=== PATIENT | female | born 1975 | race Two or more races ===

== ENCOUNTER 2024-06-25 14:16 | Emergency (ER) | payer SELFPAY ==
[~2024-06-25] VITALS: Ht 172.7 cm; Wt 136.0 kg
[2024-06-25 14:45] VITALS: PULSE 98; RESP 16; O2SAT 95
[2024-06-25] MEDS: ONDANSETRON HCL 4 MG/2 ML VIAL IV ONE (15:01)
[2024-06-25] MEDS: SODIUM CHLORIDE 0.9% 1,000 ML IV ONE (15:03)
[2024-06-25 15:09] LABS: COVID19 ANTIGEN SOFIA FIA NEGATIVE (NEGATIVE); Rapid Influenza B Negative (Negative)
[2024-06-25 15:12] LABS: Rapid Influenza A Positive (Negative)
--- NOTE | 2024-06-25 15:21 | DVH ---
CHEST RADIOGRAPH Indication: COUGH Technique: Single frontal view of the chest was obtained Comparison: None FINDINGS: Lines and Tubes: None Lungs: No focal consolidation. Mild interstitial prominence. Pleura: No effusion. No pneumothorax. Cardiomediastinal contours: Unremarkable Bones: No acute osseous abnormality. IMPRESSION: Mild pulmonary vascular congestion.
--- NOTE | 2024-06-25 15:23 | ED.PDOC ---
SOB-HPI HPI Comments 49 year old female VIKTORIA presents to the ED with chief complaint of flu-like illness. Patient reports that she has been experiencing SOB with associated productive cough, fever, body aches, and headache for the past 2 days since returning from a [place] trip. Patient relays that she has asthma and thought it was just an episode of exacerbation, but it became worse over time. Patient denies any chest pain, N/V/D, abdominal pain, chills, dizziness, or hemoptysis. Chief Complaint: Flu like Time Seen by MD: 15:14 Reviewed notes: Nurses Notes, Hydraulic Assembler Notes, Medications, Allergies Information Source: Patient Mode of Arrival: EMS Severity: Moderate Timing: Days Duration: Since onset Context: At Rest PE Risk Factors: None History of: None Prehospital treatment: None Associated Signs and Symptoms: Fever, Cough If cough with SOB: Productive Past Medical History PAST MEDICAL HISTORY: Asthma, DM, HTN Surgical History: , Hysterectomy Surgical History (Other): Bilateral carpal tunnel surgery GAME MASTER History: No Pertinent GAME MASTER History Family History Family History: Reviewed,noncontributory to illness Social History Smoker: Non-Smoker Alcohol: Occasionally Drugs: Denies Drug Use Lives In: Home Constitutional: reports: fever, others (Body aches); denies: chills, diaphoresis, fatigue, malaise, sweats, weakness EENTM: denies: blurred vision, double vision, ear bleeding, ear discharge, ear drainage, ear pain, ear ringing, eye pain, eye redness, hearing loss, mouth pain, mouth swelling, nasal discharge, nose bleeding, nose congestion, nose pain, photophobia, tearing, throat pain, throat swelling, voice changes, others Respiratory: reports: cough, shortness of breath; denies: hemoptysis, orthopnea, SOB at rest, SOB with excertion, stridor, wheezing, others Cardiovascular: denies: chest pain, dizzy spells, diaphoresis, Dyspnea on exertion, edema, irregular heart beat, left arm pain, lightheadedness, pa lpitations, PND, syncope, others Gastrointestinal: denies: abdomen distended, abdominal pain, blood streaked bowels, constipated, diarrhea, dysphagia, difficulty swallowing, hematemesis, melena, nausea, poor appetite, poor fluid intake, rectal bleeding, rectal pain, vomiting, others Genitourinary: denies: abnormal vagina bleeding, burning, dyspareunia, dysuria, flank pain, frequency, hematuria, incontinence, pain, , vagina discharge, urgency, others Neurological: reports: headache; denies: dizziness, fainting, left sided numbness, left sided weakness, numbness, paresthesia, pre-existing deficit, right sided numbness, right sided weakness, seizure, speech problems, tingling, tremors, weakness, others Musculoskeletal: denies: back pain, gout, joint pain, joint swelling, muscle pain, muscle stiffness, neck pain, others Integumetry: denies: bruises, change in color, change in hair/nails, dryness, laceration, lesions, lumps, rash, wounds, others Allergic/Immunocompromised: denies: Difficulty Healing, Frequent Infections, Hives, Itching, others Hematologic/Lymphatic: denies: anemia, blood clots, easy bleeding, easy bruising, swollen glands, others Endocrine: denies: excessive hunger, excessive sweating, excessive thirst, excessive urination, flushing, intolerance to cold, intolerance to heat, unexplained weight gain, unexplained weight loss, others Psychiatric: denies: anxiety, bipolar disorder, depression, hopeless, panic disorder, schizophrenia, sleepless, suicidal, others All Other Systems: Reviewed and Negative Physical Exam General Appearance: Moderate Distress, Obese HEENT: Normal ENT Inspection, PERRL/EOMI, Pharynx Normal, TMs Normal Neck: Full Range of Motion, Non-Tender, Normal, Normal Inspection Respiratory: Chest Non-Tender, Lungs Clear, No Accessory Muscle Use, No Respiratory Distress, Normal Breath Sounds Cardiovascular: No Edema, No JVD, No Murmur, No Gallop, Normal Peripheral Pulses, Regular Rate/Rhythm Breast Exam: Deferred Gastrointestinal: No Organomegaly, Non Tender, No Pulsatile Mass, Normal Bowel Sounds, Soft Genitalia: Deferred Pelvic: Deferred Rectal: Deferred Extremities: No calf tenderness, Normal capillary refill, Normal inspection, Normal range of motion, Non-tender, No pedal edema Musculoskeletal : Apperance: Normal Neurologic: Alert, physician non invasive cardiologist II-XII nml as Tested, No Motor Deficits, Normal Affect, Normal Mood, No Sensory Deficits Cerebellar Function: Normal Reflexes: Normal Skin: Dry, Normal Color, Warm Peripheral Pulses: 1+ carotid (R), 1+ carotid (L) Lymphatic: No Adenopathy Was a procedure done? Was a procedure done?: No Differential Dx Differential Diagnosis: Bronchitis, CHF, Dysrhythmia, Pneumonia, Pharyngitis, URI, Other (SYNDROME) X-Ray, Labs, Meds, VS Vital Signs Date Time Temp Pulse Resp B/P (MAP) Pulse Ox O2 Delivery O2 Flow Rate FiO2 06/25/24 16:18 102.2 111 18 144/76 (98) 96 102.2 06/25/24 16:18 111 18 96 Room Air 06/25/24 14:58 100.0 108 22 135/87 (103) 98 100.0 06/25/24 14:45 98 16 95 Room Air* 0 21 Lab Test 06/25/24 14:40 Range/Units Influenza Type A Antigen Positive Negative Influenza Type B Antigen Negative Negative SARS-CoV-2 Antigen (Rapid) Negative NEGATIVE Current Medications Medications (Trade) Dose Ordered Sig/Fabio Route Start Time Stop Time Status Last Admin Ondansetron HCl (Zofran) 4 mg ONCE ONCE IV 06/25/24 15:00 06/25/24 15:01 DC 06/25/24 15:01 Sodium Chloride 1,000 ml @ 1,000 mls/hr Q1H ONCE IV 06/25/24 15:00 06/25/24 15:59 DC 06/25/24 15:03 Chest XR: FINDINGS: Lines and Tubes: None Lungs: No focal consolidation. Mild interstitial prominence. Pleura: No effusion. No pneumothorax. Cardiomediastinal contours: Unremarkable Bones: No acute osseous abnormality. IMPRESSION: Mild pulmonary vascular congestion. X-Ray, Labs, Meds, VS Comment COURSE IN THE EMERGENCY DEPARTMENT EVENTFUL PATIENT CAME IN COMPLAINING OF SHORTNESS OF BREATH FEVER CHILLS HEADACHE FOR THE PAST FEW DAYS SHE HAS A HISTORY OF ASTHMA DIABETES AND HYPERTENSION THE CHEST X-RAY SHOWS PULMONARY VASCULAR CONGESTION INFLUENZA A POSITIVE INFLUENZA B NEGATIVE COVID-19 NEGATIVE PATIENT WILL BE DISCHARGED HOME TO FOLLOW UP WITH HER PCP IF NOT BETTER SHE WILL COME TO THE ER FOR FURTHER CARE Time of 1ST Reevaluation: 16:14 Reevaluation 1ST: Unchanged Time of 2ND Reevaluation: 16:16 Reevaluation 2ND: Unchanged Consultation: PCP Patient Education/Counseling: Diagnosis, Treatment, Prognosis, Need For Follow Up Family Education/Counseling: Diagnosis, Treatment, Prognosis, Need For Follow Up, No Family Present Departure 1 Departure Time of Disposition: 16:18 Impression: Primary Impression: Influenza A H1N1 infection Additional Impressions: Febrile History of diabetes mellitus, type II History of asthma Disposition: 01 HOME / SELF CARE / HOMELESS Condition: Fair Additional Instructions: PUSH FLUIDS USE TYLENOL FOR FEVER AND ACHE AND FOLLOW UP WITH YOUR PCP e-Prescriptions [id number] W/ APAP (Robitussin Severe Mul... [id number] mg/10Ml) 1 Liq Liq 2 TSP PO TID for 10 Days, #300 LIQ Prov: RADHAMES MONGE MD 06/25/24 Oseltamivir Phosphate (Tamiflu) 75 Mg Cap 1 CAP PO BID for 5 Days, #10 CAP Prov: RADHAMES MONGE MD 06/25/24 Discharged With: Self Critical Care Note Critical Care Time?: No Stability Stability form required: No Heart Score Heart Score: Heart Score Response (Comments) Value History N/A 0 EKG N/A 0 Age 45-64 1 Risk Factors 1 or 2 risk factors 1 Troponin N/A 0 Total 2 I personally scribed for RADHAMES MONGE MD ([email or web address]) on 06/25/24 at 15:23. Electronically submitted by Baldomero Valencia ([email or web address]). I personally scribed for RADHAMES MONGE MD ([email or web address]) on 06/25/24 at 15:25. Electronically submitted by Baldomero Valencia ([email or web address]). I personally scribed for RADHAMES MONGE MD ([email or web address]) on 06/25/24 at 15:56. Electronically submitted by Baldomero Valencia ([email or web address]). RADHAMES MONGE MD June 25, 2024 15:23
[2024-06-25 16:18] VITALS: BP 144/76; PULSE 111; RESP 18; TEMP 102.2; O2SAT 96
[2024-06-25] MEDS ORDERED: OSEL75CA5 PO (16:24)
[2024-06-25] MEDS ORDERED: PHEN1LIQ50 PO (16:24)
[2024-06-25 16:31] LABS: Urine Bacteria None Seen /hpf (None Seen)
[2024-06-25] MEDS: ACETAMINOPHEN 325 MG TAB PO ONE (16:39)
[2024-06-25 16:40] LABS: Urine Blood Negative /uL (Negative); Urine Clarity Clear (Clear); Urine Color Colorless (Yellow); Urine Protein, UAD Negative (Negative); Urine Specific Gravity 1.004 (1.001-1.035); Urine Squamous Epithelial Cell FEW /hpf (<5); Urine Urobilinogen Normal (Negative)
[2024-06-25 16:41] LABS: Urine WBC 5 /HPF (0-5)
== END 2024-06-25 16:39 | disposition home or self-care (01) ==
LOC: ER 14:16 → EDBD 14:16 → ER 16:39
DX: J10.1 Influenza due to other identified influenza virus with other respiratory manifestations (principal); E11.9 Type 2 diabetes mellitus without complications; I10 Essential (primary) hypertension; J45.909 Unspecified asthma, uncomplicated; Z90.710 Acquired absence of both cervix and uterus; Z98.890 Other specified postprocedural states; Z20.822 Contact with and (suspected) exposure to COVID-19
CPT/HCPCS: 36415; 71045; 81001; 87426; 87804; 96361; 96374; 99284; J2405; J7030